=== PATIENT | female | born 1980 | race Caucasian/White ===

== ENCOUNTER 2020-10-13 20:33 | Emergency (ER) | payer SELFPAY ==
[~2020-10-13] VITALS: Ht 167.6 cm; Wt 84.8 kg
--- NOTE | 2020-10-13 21:09 | PHYS DOC ---
Adult General Chief Complaint Chief Complaint: MECHANICAL FALL HPI HPI Patient is a 40-year-old female, otherwise healthy who presents with left-sided rib pain. States that this morning when she was getting out of the shower she slipped and fell into the side of the cast iron bathtub. States that since then she has had pain just under her left armpit, 7 out of 10, dull and achy in nature with no radiation. Denies any other injuries. States she took a tramadol and some Tylenol just before coming which did help with the pain a little bit but wants to make sure nothing is broken. Review of Systems Review of Systems Review of systems otherwise unremarkable except noted in HPI Physical Exam Physical Exam Constitutional: Well developed, well nourished, no acute distress, non-toxic appearance. [] Cardiovascular:Heart rate regular rhythm, no murmur ] Lungs & Thorax: Bilateral breath sounds clear to auscultation, no obvious bruising or deformities on exam [] Abdomen: Bowel sounds normal, soft, no tenderness, Skin: Warm, dry, no erythema, no rash. [] Back: No tenderness, no CVA tenderness. [] Extremities: No tenderness, ROM intact, no edema. [] Neurologic: Alert and oriented X 3, no focal deficits noted. [] Psychologic: Affect normal, judgement normal, mood normal. [] EKG EKG [] Radiology/Procedures Radiology/Procedures [] Exam: Left ribs with PA chest INDICATION: Fall, mid lateral rib pain TECHNIQUE: Frontal view of the chest with oblique and lateral views of the left ribs Comparisons: None FINDINGS: The cardiomediastinal silhouette and pulmonary vessels are within normal limits. The lung and pleural spaces are clear. No displaced rib fractures are identified. IMPRESSION: 1. No acute cardiopulmonary process. 2. No displaced rib fractures. Electronically signed by: Sandra Mi MD (10/13/2020 9:34 PM) [facility] Heart Score C/O Chest Pain: No Risk Factors: Risk Factors: DM, Current or recent (<one month) smoker, HTN, HLP, family history of CAD, obesity. Risk Scores: Risk Factors: DM, Current or recent (<one month) smoker, HTN, HLP, family history of CAD, obesity. Course & Med Decision Making Course & Med Decision Making Patient is a 40-year-old female who presents with left-sided rib pain Vital signs not concerning. Physical exam noted above. Given dose of Toradol. Given oral pain medication. Imaging noted above with no acute osseous abnormalities. Pain significantly im proved during ED visit. Discussed pain management at home. Advised to follow-up with primary care physician. Gave return precautions to the ED. Family grateful, verbalized understanding and agreed with plan of discharge. [] Dragon Disclaimer Dragon Disclaimer This electronic medical record was generated, in whole or in part, using a voice recognition dictation system. Departure Departure: Impression: Primary Impression: Rib pain Disposition: HOME / SELF CARE / HOMELESS Condition: GOOD Referrals: PCP,LEXI (PCP) COLE DUARTE MD Patient Instructions: RICE - Routine Care for Injuries Additional Instructions: Thank you for coming into the emergency department and allowing us to take care of you. Please read the attached information very carefully. You can continue your tramadol, Tylenol and ibuprofen as well as ice at home as needed for pain control. Please follow-up with your primary care physician as soon as you can to update on your ED visit and set up a follow-up appointment. Please come back to the emergency department immediately with new or concerning symptoms as discussed. ESTEBAN BORGES MD Oct 13, 2020 21:09
[2020-10-13] MEDS ORDERED: HYDROcodone/APAP 5/325MG 1 TAB TABLET PO ONE (21:15)
[2020-10-13] MEDS ORDERED: KETOROLAC 60 MG/2 ML VIAL. IM ONE (21:15)
--- NOTE | 2020-10-13 21:37 | RAD ---
Exam: Left ribs with PA chest INDICATION: Fall, mid lateral rib pain TECHNIQUE: Frontal view of the chest with oblique and lateral views of the left ribs Comparisons: None FINDINGS: The cardiomediastinal silhouette and pulmonary vessels are within normal limits. The lung and pleural spaces are clear. No displaced rib fractures are identified. IMPRESSION: 1. No acute cardiopulmonary process. 2. No displaced rib fractures. Electronically signed by: Sandra Mi MD (10/13/2020 9:34 PM) [facility]
[2020-10-13 21:45] VITALS: BP 121/74
== END 2020-10-13 21:49 | disposition home or self-care (01) ==
LOC: ER 20:33
DX: R07.81 Pleurodynia (principal); W18.2XXA Fall in (into) shower or empty bathtub, initial encounter; Y93.E1 Activity, personal bathing and showering; Y92.091 Bathroom in other non-institutional residence as the place of occurrence of the external cause; Y99.8 Other external cause status
CPT/HCPCS: 71101; 96372; 99283; J1885